=== PATIENT | female | born 1955 | race Two or more races ===

== ENCOUNTER 2017-05-10 18:36 | Emergency (ER) | payer OTHER ==
[~2017-05-10] VITALS: Ht 170.2 cm; Wt 115.7 kg
[~2017-05-10 18:36] MED LIST: BABY ASPIRIN81 MG PO; FLEXERIL10 MG PO; NORFLEX100 MG PO; PEPCID40 MG PO; PULMICORT180 MCG/AE IH; SULINDAC200 MG PO; TRICOR145 MG PO; XOPENEX HFA15 GM IH
== END 2017-05-10 23:05 | disposition home or self-care (01) ==
LOC: ER 18:36
DX: J11.1 Influenza due to unidentified influenza virus with other respiratory manifestations (principal)

== ENCOUNTER 2017-06-06 12:58 | Outpatient (CLI) | payer OTHER | END 2017-06-06 13:03 | disposition home or self-care (01) | LOC: SONOGRAMA 12:58 | DX: E04.8 Other specified nontoxic goiter (principal) ==

== ENCOUNTER 2017-06-21 12:09 | Outpatient (CLI) | payer OTHER | END 2017-06-21 15:23 | disposition home or self-care (01) | LOC: SONOGRAMA 12:09 | DX: N32.81 Overactive bladder (principal) ==

== ENCOUNTER 2017-09-19 11:00 | Outpatient (CLI) | payer OTHER | END 2017-09-19 11:32 | disposition home or self-care (01) | LOC: MAMO-SONO 11:00 | DX: Z12.31 Encounter for screening mammogram for malignant neoplasm of breast (principal); Z87.898 Personal history of other specified conditions; Z12.39 Encounter for other screening for malignant neoplasm of breast ==

== ENCOUNTER → 2017-09-19 | Outpatient (CLI) | payer OTHER | END | disposition home or self-care (01) | LOC: RAD 12:09 | DX: J44.1 Chronic obstructive pulmonary disease with (acute) exacerbation (principal) ==

== ENCOUNTER 2017-10-15 09:50 | Outpatient (CLI) | payer OTHER | END 2017-10-15 10:01 | disposition home or self-care (01) | LOC: SONOGRAMA 09:50 | DX: K76.0 Fatty (change of) liver, not elsewhere classified (principal) ==

== ENCOUNTER 2017-11-30 14:28 | Emergency (ER) | payer OTHER ==
[~2017-11-30] VITALS: Ht 170.2 cm; Wt 113.4 kg
[2017-11-30] MEDS ORDERED: NEURONTIN600 MG PO (14:40)
== END 2017-11-30 16:05 | disposition home or self-care (01) ==
LOC: ER 14:28
DX: G89.11 Acute pain due to trauma (principal); M25.511 Pain in right shoulder; M79.621 Pain in right upper arm

== ENCOUNTER 2018-05-09 12:35 | Outpatient (CLI) | payer OTHER ==
[~2018-05-09 12:35] MED LIST changes: +NEURONTIN600 MG PO
== END 2018-05-09 17:00 | disposition home or self-care (01) ==
LOC: SONOGRAMA 12:35
DX: M75.101 Unspecified rotator cuff tear or rupture of right shoulder, not specified as traumatic (principal)

== ENCOUNTER 2018-05-30 10:53 | Outpatient (CLI) | payer OTHER | END 2018-05-30 10:58 | disposition home or self-care (01) | LOC: RAD 501 10:53 | DX: M54.2 Cervicalgia (principal) ==

== ENCOUNTER → 2018-08-26 | Emergency (ER) | payer OTHER ==
[~2018-08-26] VITALS: Ht 167.6 cm; Wt 102.1 kg
[~2018-08-26] MED LIST changes: +AIRBORNE EFFER1 EACH PO; +KETO10TA2 PO; +MUCINEX DM ER1 EAC1 PO; +OSEL75CA PO; +TESSALON PERLE100 M1 PO
== END | disposition home or self-care (01) ==
LOC: ER 21:50
DX: J09.X2 Influenza due to identified novel influenza A virus with other respiratory manifestations (principal)

== ENCOUNTER → 2018-09-22 | Outpatient (CLI) | payer OTHER | END | disposition home or self-care (01) | LOC: MAMO-SONO 09:12 | DX: Z12.31 Encounter for screening mammogram for malignant neoplasm of breast (principal); Z87.898 Personal history of other specified conditions; N64.89 Other specified disorders of breast ==

== ENCOUNTER 2020-03-04 10:59 | Outpatient (CLI) | payer OTHER | END 2020-03-04 11:14 | disposition home or self-care (01) | LOC: MAMO-SONO 10:59 | PROVIDERS: ATTEND Specialist | DX: R92.0 Mammographic microcalcification found on diagnostic imaging of breast (principal); Z12.31 Encounter for screening mammogram for malignant neoplasm of breast ==

== ENCOUNTER 2020-07-24 10:50 | Outpatient (CLI) | payer OTHER | END 2020-07-24 10:58 | disposition home or self-care (01) | LOC: RAD 10:50 | PROVIDERS: ATTEND Specialist | DX: J45.998 Other asthma (principal) ==

== ENCOUNTER 2021-04-28 07:57 | Outpatient (CLI) | payer OTHER | END 2021-04-28 08:10 | disposition home or self-care (01) | LOC: RAD 07:57 | PROVIDERS: ATTEND Specialist | DX: E04.2 Nontoxic multinodular goiter (principal); R92.0 Mammographic microcalcification found on diagnostic imaging of breast; Z12.31 Encounter for screening mammogram for malignant neoplasm of breast; E03.8 Other specified hypothyroidism; J45.998 Other asthma ==

== ENCOUNTER 2021-05-22 09:45 | Outpatient (CLI) | payer OTHER | END 2021-05-22 09:57 | disposition home or self-care (01) | LOC: SONOGRAMA 09:45 | PROVIDERS: ATTEND Obstetrics & Gynecology | DX: R89.6 Abnormal cytological findings in specimens from other organs, systems and tissues (principal); Z01.419 Encounter for gynecological examination (general) (routine) without abnormal findings ==

== ENCOUNTER 2021-06-01 09:42 | Outpatient (CLI) | payer OTHER | END 2021-06-01 09:44 | disposition home or self-care (01) | LOC: SONOGRAMA 09:42 | PROVIDERS: ATTEND Pathology Anatomic Pathology & Clinical Pathology | DX: E04.1 Nontoxic single thyroid nodule (principal) ==

== ENCOUNTER 2022-05-03 17:04 | Outpatient (CLI) | payer OTHER | END 2022-05-03 17:12 | disposition home or self-care (01) | LOC: RAD 17:04 | PROVIDERS: ATTEND Specialist | DX: J45.990 Exercise induced bronchospasm (principal) ==

== ENCOUNTER 2022-05-05 12:23 | Outpatient (CLI) | payer OTHER | END 2022-05-05 12:31 | disposition home or self-care (01) | LOC: MAMO-SONO 12:23 | PROVIDERS: ATTEND Specialist | DX: Z12.39 Encounter for other screening for malignant neoplasm of breast (principal) ==